=== PATIENT | male | born 1965 | race Hispanic/Latino ===

== ENCOUNTER 2020-06-21 11:47 | Inpatient (IN) | payer OTHER ==
[~2020-06-21] VITALS: Ht 167.6 cm; Wt 83.9 kg
[2020-06-21] MEDS ORDERED: ASPIRIN 81 MG CHEW TAB PO ONE (13:30)
[2020-06-21] MEDS ORDERED: HYDRALAZINE HCL 20 MG/ML VIAL IV PRN (14:00)
[2020-06-21] MEDS ORDERED: LIDOCAINE 4% PATCH TP PRN (14:00)
[2020-06-21] MEDS ORDERED: POTASSIUM CHLORIDE 20 MEQ TAB CR PO PRN (14:00)
[2020-06-21] MEDS ORDERED: HYDROCODONE/APAP 5MG-325MG TAB PO PRN (14:00)
[2020-06-21] MEDS ORDERED: CHLORASEPTIC SPRAY 177 ML BTL MM PRN (14:00)
[2020-06-21] MEDS ORDERED: DIPHENHYDRAMINE HCL 25 MG CAP PO PRN (14:00)
[2020-06-21] MEDS ORDERED: POLYETHYLENE GLYCOL 3350 17 GM PACK PO PRN (14:00)
[2020-06-21] MEDS ORDERED: ONDANSETRON HCL INJ 2MG/ML 2ML 2 MG/ML VIAL IV PRN (14:00)
[2020-06-21] MEDS ORDERED: DEXTROSE 50% SYRINGE 50 ML IV PRN (14:00)
[2020-06-21] MEDS: GUAIFENESIN/CODEINE 10 ML CUP PO PRN ×2 (14:08→17:43)
[2020-06-21] MEDS: BENZONATATE 100 MG CAP PO PRN ×2 (14:08→17:43)
[2020-06-21] MEDS: ACETAMINOPHEN 325 MG TAB PO PRN (14:08)
[2020-06-21] MEDS: DEXAMETHASONE SOD PHOS INJ 4 MG/ML VIAL IV SCH (14:18)
[2020-06-21] MEDS: CEFTRIAXONE SOD 1 GM/NS 50 ML 50 ML IV SCH (14:19)
[2020-06-21 14:24] LABS: CREATINE KINASE 220 IU/L (30-200)
[2020-06-21] MEDS: AZITHROMYCIN 500MG/NS 250 ML 250 ML IV SCH (14:24)
[2020-06-21 14:27] LABS: BASOPHILS % 0.2 % (0.0-1.0); HEMATOCRIT 40.3 % (38.2-49.6); HEMOGLOBIN 14.4 g/dL (14.0-18.0); LYMPHOCYTES # (AUTO) 0.9 (1.0-3.2); LYMPHOCYTES % 8.4 % (18.0-39.1); MEAN CORPUSCULAR HGB CONC 35.7 g/dL (31-35); MEAN CORPUSCULAR VOLUME 92.4 fL (81-99); MONOCYTES # (AUTO) 0.2 (0.2-0.8); MONOCYTES % 1.9 % (4.4-11.3); NEUTROPHILS # (AUTO) 9.5 (2.1-6.9); NEUTROPHILS % 88.5 % (38.7-80.0); PLATELET COUNT 290 x10e3/uL (140-360); RED BLOOD COUNT 4.36 x10e6/uL (4.3-5.7); RED CELL DISTRIBUTION WIDTH 11.9 % (11.7-14.4)
[2020-06-21 14:38] LABS: ALANINE AMINOTRANSFERASE 40 IU/L (0-55); ALBUMIN 2.4 g/dL (3.5-5.0); ALBUMIN/GLOBULIN RATIO 0.5 (0.8-2.0); ALKALINE PHOSPHATASE 48 IU/L (40-150); ANION GAP 15.3 mmol/L (8-16); BLOOD UREA NITROGEN 18 mg/dL (7-26); BUN/CREATININE RATIO 20 (6-25); CALCIUM 8.2 mg/dL (8.4-10.2); CARBON DIOXIDE 26 mmol/L (22-29); CHLORIDE 94 mmol/L (98-107); CREATININE, SERUM 0.91 mg/dL (0.72-1.25); EST GLOMERULAR FILTRATION RATE > 60 ML/MIN (60-); GLUCOSE 178 mg/dL (74-118); POTASSIUM 4.3 mmol/L (3.5-5.1); SODIUM 131 mmol/L (136-145)
[2020-06-21] MEDS ORDERED: REMDESIVIR 200MG/NS 100ML 200 MG in SODIUM CHLORIDE 0.9% 100 ML 100 ML IV ONE (15:00)
[2020-06-21] MEDS: ASCORBIC ACID 500 MG TAB PO SCH (17:43)
[2020-06-21] MEDS: ENOXAPARIN SOD INJ 40 MG/0.4 ML SYR SC SCH (17:43)
[2020-06-21 23:23] LABS: CREATINE KINASE MB 1.3 ng/mL (0-5.0)
[2020-06-22 05:57] LABS: HEMATOCRIT 40.9 % (38.2-49.6); HEMOGLOBIN 14.8 g/dL (14.0-18.0); LYMPHOCYTES # (AUTO) 0.5 (1.0-3.2); LYMPHOCYTES % 7.4 % (18.0-39.1); MEAN CORPUSCULAR HEMOGLOBIN 33.8 pg (28-32); MEAN CORPUSCULAR HGB CONC 36.2 g/dL (31-35); MEAN CORPUSCULAR VOLUME 93.4 fL (81-99); MONOCYTES # (AUTO) 0.1 (0.2-0.8); NEUTROPHILS # (AUTO) 6.4 (2.1-6.9); NEUTROPHILS % 90.2 % (38.7-80.0); PLATELET COUNT 292 x10e3/uL (140-360); RED BLOOD COUNT 4.38 x10e6/uL (4.3-5.7); RED CELL DISTRIBUTION WIDTH 11.9 % (11.7-14.4)
[2020-06-22 06:12] LABS: CREATINE KINASE MB 1.2 ng/mL (0-5.0)
[2020-06-22 06:31] LABS: ALANINE AMINOTRANSFERASE 37 IU/L (0-55); ALBUMIN 2.1 g/dL (3.5-5.0); ALBUMIN/GLOBULIN RATIO 0.4 (0.8-2.0); ALKALINE PHOSPHATASE 48 IU/L (40-150); ANION GAP 16.3 mmol/L (8-16); BLOOD UREA NITROGEN 24 mg/dL (7-26); BUN/CREATININE RATIO 32 (6-25); CALCIUM 8.4 mg/dL (8.4-10.2); CARBON DIOXIDE 22 mmol/L (22-29); CHLORIDE 97 mmol/L (98-107); CREATININE, SERUM 0.76 mg/dL (0.72-1.25); EST GLOMERULAR FILTRATION RATE > 60 ML/MIN (60-); GLUCOSE 225 mg/dL (74-118); POTASSIUM 4.3 mmol/L (3.5-5.1); SODIUM 131 mmol/L (136-145)
[2020-06-22 06:45] LABS: MAGNESIUM 2.3 MG/DL (1.3-2.1); PHOSPHORUS 2.9 MG/DL (2.3-4.7)
[2020-06-22 07:42] LABS: FERRITIN 3269.01 ng/mL (21.81-274.66)
[2020-06-22] MEDS: ZINC SULFATE 220 MG CAP PO SCH (08:13)
[2020-06-22] MEDS: PANTOPRAZOLE SOD 40 MG TABEC PO SCH (08:13)
[2020-06-22] MEDS: DOCUSATE SODIUM 100 MG CAP PO PRN (08:13)
[2020-06-22] MEDS: DEXAMETHASONE SOD PHOS INJ 4 MG/ML VIAL IV SCH (08:13)
[2020-06-22] MEDS: ASCORBIC ACID 500 MG TAB PO SCH ×2 (08:13→18:18)
[2020-06-22] MEDS: BENZONATATE 100 MG CAP PO PRN (08:14)
[2020-06-22] MEDS: GUAIFENESIN/CODEINE 10 ML CUP PO PRN ×2 (08:14→18:18)
[2020-06-22] MEDS: REMDESIVIR 100MG/NS 100ML 100 MG in SODIUM CHLORIDE 0.9% 100 ML 100 ML IV SCH (14:17)
[2020-06-22] MEDS: CEFTRIAXONE SOD 1 GM/NS 50 ML 50 ML IV SCH (15:04)
[2020-06-22] MEDS: AZITHROMYCIN 500MG/NS 250 ML 250 ML IV SCH (16:37)
[2020-06-22 17:57] VITALS: BP 114/76
[2020-06-22] MEDS: ENOXAPARIN SOD INJ 40 MG/0.4 ML SYR SC SCH (18:18)
[2020-06-22 18:19] VITALS: BP 114/76
[2020-06-22 20:00] VITALS: BP 101/79
[2020-06-22] MEDS: ACETAMINOPHEN 325 MG TAB PO PRN (21:00)
[2020-06-22 21:15] VITALS: BP 101/79
[2020-06-23] VITALS (8 sets, daily range): BP systolic 98–112; BP diastolic 62–73
[2020-06-23] MEDS: ASCORBIC ACID 500 MG TAB PO SCH ×2 (08:32→17:12)
[2020-06-23] MEDS: DEXAMETHASONE SOD PHOS INJ 4 MG/ML VIAL IV SCH (08:32)
[2020-06-23] MEDS: PANTOPRAZOLE SOD 40 MG TABEC PO SCH (08:32)
[2020-06-23] MEDS: ZINC SULFATE 220 MG CAP PO SCH (08:32)
[2020-06-23] MEDS: REMDESIVIR 100MG/NS 100ML 100 MG in SODIUM CHLORIDE 0.9% 100 ML 100 ML IV SCH (14:45)
[2020-06-23] MEDS: AZITHROMYCIN 500MG/NS 250 ML 250 ML IV SCH (14:49)
[2020-06-23] MEDS: CEFTRIAXONE SOD 1 GM/NS 50 ML 50 ML IV SCH (14:49)
[2020-06-23] MEDS ORDERED: SODIUM CHLORIDE 0.9% 250ML 250 ML ONE (15:07)
[2020-06-23] MEDS: ENOXAPARIN SOD INJ 40 MG/0.4 ML SYR SC SCH (17:12)
[2020-06-23] MEDS: BENZONATATE 100 MG CAP PO PRN (20:28)
[2020-06-23] MEDS: MELATONIN 5 MG TABLET PO PRN (20:28)
[2020-06-24] VITALS: BP 111/66
[2020-06-24 08:00] VITALS: BP 110/70
[2020-06-24] MEDS: DEXAMETHASONE SOD PHOS INJ 4 MG/ML VIAL IV SCH (08:50)
[2020-06-24] MEDS: ZINC SULFATE 220 MG CAP PO SCH (08:50)
[2020-06-24] MEDS: PANTOPRAZOLE SOD 40 MG TABEC PO SCH (08:50)
[2020-06-24] MEDS: ASCORBIC ACID 500 MG TAB PO SCH ×2 (08:50→17:58)
[2020-06-24 08:55] VITALS: BP 111/66
[2020-06-24] MEDS: AZITHROMYCIN 500MG/NS 250 ML 250 ML IV SCH (15:47)
[2020-06-24] MEDS: CEFTRIAXONE SOD 1 GM/NS 50 ML 50 ML IV SCH (15:47)
[2020-06-24] MEDS: REMDESIVIR 100MG/NS 100ML 100 MG in SODIUM CHLORIDE 0.9% 100 ML 100 ML IV SCH (15:47)
[2020-06-24 17:51] VITALS: BP 127/79
[2020-06-24] MEDS: ENOXAPARIN SOD INJ 40 MG/0.4 ML SYR SC SCH (17:58)
[2020-06-24] MEDS: BENZONATATE 100 MG CAP PO PRN (20:06)
[2020-06-24] MEDS: MELATONIN 5 MG TABLET PO PRN (20:06)
[2020-06-24 21:00] VITALS: BP 125/69
[2020-06-25] VITALS: BP 110/54
[2020-06-25 04:00] VITALS: BP 113/70
[2020-06-25 08:00] VITALS: BP_SYST 113; BP_SYST 128; BP_DIAS 70; BP_DIAS 71
[2020-06-25] MEDS: PANTOPRAZOLE SOD 40 MG TABEC PO SCH (09:45)
[2020-06-25] MEDS: DEXAMETHASONE SOD PHOS INJ 4 MG/ML VIAL IV SCH (09:45)
[2020-06-25] MEDS: ZINC SULFATE 220 MG CAP PO SCH (09:46)
[2020-06-25] MEDS: ASCORBIC ACID 500 MG TAB PO SCH ×2 (09:46→17:32)
[2020-06-25 12:00] VITALS: BP 125/72
[2020-06-25] MEDS ORDERED: DEXTROSE 50% SYRINGE 50 ML IV PRN (12:30)
[2020-06-25] MEDS: AZITHROMYCIN 500MG/NS 250 ML 250 ML IV SCH (15:03)
[2020-06-25] MEDS: CEFTRIAXONE SOD 1 GM/NS 50 ML 50 ML IV SCH (15:03)
[2020-06-25] MEDS: REMDESIVIR 100MG/NS 100ML 100 MG in SODIUM CHLORIDE 0.9% 100 ML 100 ML IV SCH (15:03)
[2020-06-25 16:00] VITALS: BP 128/79
[2020-06-25] MEDS: ENOXAPARIN SOD INJ 40 MG/0.4 ML SYR SC SCH (17:32)
[2020-06-25] MEDS: INSULIN REGULAR, HUMAN 100 UNIT/1 ML 3ML VIAL SQ SCH ×2 (17:34→21:00)
[2020-06-25] MEDS: MELATONIN 5 MG TABLET PO PRN (20:24)
[2020-06-25] MEDS: BENZONATATE 100 MG CAP PO PRN (20:24)
[2020-06-25 21:00] VITALS: BP_SYST 122; BP_SYST 128; BP_DIAS 79; BP_DIAS 80
[2020-06-26] VITALS (8 sets, daily range): BP systolic 98–118; BP diastolic 50–80
[2020-06-26 05:13] LABS: BASOPHILS % 0.2 % (0.0-1.0); EOSINOPHILS % 0.3 % (0.0-6.0); HEMOGLOBIN 13.7 g/dL (14.0-18.0); LYMPHOCYTES # (AUTO) 0.7 (1.0-3.2); LYMPHOCYTES % 11.7 % (18.0-39.1); MEAN CORPUSCULAR HEMOGLOBIN 32.8 pg (28-32); MEAN CORPUSCULAR HGB CONC 35.1 g/dL (31-35); MEAN CORPUSCULAR VOLUME 93.3 fL (81-99); MONOCYTES # (AUTO) 0.2 (0.2-0.8); MONOCYTES % 3.3 % (4.4-11.3); NEUTROPHILS % 83.7 % (38.7-80.0); PLATELET COUNT 333 x10e3/uL (140-360); RED BLOOD COUNT 4.18 x10e6/uL (4.3-5.7); RED CELL DISTRIBUTION WIDTH 11.9 % (11.7-14.4)
[2020-06-26 05:40] LABS: ANION GAP 13.1 mmol/L (8-16); BLOOD UREA NITROGEN 24 mg/dL (7-26); BUN/CREATININE RATIO 38 (6-25); CALCIUM 7.9 mg/dL (8.4-10.2); CARBON DIOXIDE 22 mmol/L (22-29); CHLORIDE 103 mmol/L (98-107); CREATININE, SERUM 0.64 mg/dL (0.72-1.25); EST GLOMERULAR FILTRATION RATE > 60 ML/MIN (60-); GLUCOSE 126 mg/dL (74-118); POTASSIUM 4.1 mmol/L (3.5-5.1); SODIUM 134 mmol/L (136-145)
[2020-06-26] MEDS: PANTOPRAZOLE SOD 40 MG TABEC PO SCH (08:38)
[2020-06-26] MEDS: DEXAMETHASONE SOD PHOS INJ 4 MG/ML VIAL IV SCH (08:39)
[2020-06-26] MEDS: ASCORBIC ACID 500 MG TAB PO SCH ×2 (08:39→17:07)
[2020-06-26] MEDS: ZINC SULFATE 220 MG CAP PO SCH (08:39)
[2020-06-26] MEDS: INSULIN REGULAR, HUMAN 100 UNIT/1 ML 3ML VIAL SQ SCH ×4 (12:05→21:23)
[2020-06-26] MEDS: CEFTRIAXONE SOD 1 GM/NS 50 ML 50 ML IV SCH (14:48)
[2020-06-26] MEDS: ENOXAPARIN SOD INJ 40 MG/0.4 ML SYR SC SCH (17:07)
[2020-06-26] MEDS: MELATONIN 5 MG TABLET PO PRN (21:28)
[2020-06-26] MEDS: BENZONATATE 100 MG CAP PO PRN (21:28)
[2020-06-27] VITALS (9 sets, daily range): BP systolic 94–123; BP diastolic 57–72
[2020-06-27] MEDS: INSULIN REGULAR, HUMAN 100 UNIT/1 ML 3ML VIAL SQ SCH ×4 (07:30→21:00)
[2020-06-27] MEDS: DEXAMETHASONE SOD PHOS INJ 4 MG/ML VIAL IV SCH (08:44)
[2020-06-27] MEDS: ASCORBIC ACID 500 MG TAB PO SCH ×2 (08:45→16:52)
[2020-06-27] MEDS: ZINC SULFATE 220 MG CAP PO SCH (08:45)
[2020-06-27] MEDS: PANTOPRAZOLE SOD 40 MG TABEC PO SCH (08:45)
[2020-06-27] MEDS: ENOXAPARIN SOD INJ 40 MG/0.4 ML SYR SC SCH (16:53)
[2020-06-28] VITALS (8 sets, daily range): BP systolic 90–106; BP diastolic 56–72
[2020-06-28 05:33] LABS: EOSINOPHILS % 0.4 % (0.0-6.0); HEMATOCRIT 39.6 % (38.2-49.6); HEMOGLOBIN 14.1 g/dL (14.0-18.0); LYMPHOCYTES % 19.7 % (18.0-39.1); MEAN CORPUSCULAR HEMOGLOBIN 32.9 pg (28-32); MEAN CORPUSCULAR HGB CONC 35.6 g/dL (31-35); MEAN CORPUSCULAR VOLUME 92.3 fL (81-99); MONOCYTES # (AUTO) 0.4 (0.2-0.8); MONOCYTES % 6.8 % (4.4-11.3); NEUTROPHILS # (AUTO) 3.7 (2.1-6.9); NEUTROPHILS % 71.7 % (38.7-80.0); PLATELET COUNT 392 x10e3/uL (140-360); RED BLOOD COUNT 4.29 x10e6/uL (4.3-5.7); RED CELL DISTRIBUTION WIDTH 11.9 % (11.7-14.4)
[2020-06-28 06:04] LABS: BLOOD UREA NITROGEN 25 mg/dL (7-26); BUN/CREATININE RATIO 38 (6-25); CALCIUM 7.9 mg/dL (8.4-10.2); CARBON DIOXIDE 23 mmol/L (22-29); CHLORIDE 104 mmol/L (98-107); CREATININE, SERUM 0.65 mg/dL (0.72-1.25); EST GLOMERULAR FILTRATION RATE > 60 ML/MIN (60-); GLUCOSE 78 mg/dL (74-118); SODIUM 134 mmol/L (136-145)
[2020-06-28] MEDS: INSULIN REGULAR, HUMAN 100 UNIT/1 ML 3ML VIAL SQ SCH ×4 (07:30→21:36)
[2020-06-28] MEDS: ASCORBIC ACID 500 MG TAB PO SCH ×2 (09:35→16:46)
[2020-06-28] MEDS: ZINC SULFATE 220 MG CAP PO SCH (09:35)
[2020-06-28] MEDS: PANTOPRAZOLE SOD 40 MG TABEC PO SCH (09:35)
[2020-06-28] MEDS: DEXAMETHASONE SOD PHOS INJ 4 MG/ML VIAL IV SCH (09:35)
[2020-06-29] VITALS (9 sets, daily range): BP systolic 88–106; BP diastolic 61–76
[2020-06-29] MEDS: INSULIN REGULAR, HUMAN 100 UNIT/1 ML 3ML VIAL SQ SCH ×4 (07:30→20:24)
[2020-06-29] MEDS: PANTOPRAZOLE SOD 40 MG TABEC PO SCH (08:05)
[2020-06-29] MEDS: DEXAMETHASONE SOD PHOS INJ 4 MG/ML VIAL IV SCH (08:05)
[2020-06-29] MEDS: ZINC SULFATE 220 MG CAP PO SCH (08:05)
[2020-06-29] MEDS: ASCORBIC ACID 500 MG TAB PO SCH ×2 (08:05→16:01)
[2020-06-30] VITALS (8 sets, daily range): BP systolic 92–109; BP diastolic 67–92
[2020-06-30] MEDS: INSULIN REGULAR, HUMAN 100 UNIT/1 ML 3ML VIAL SQ SCH ×4 (07:30→20:55)
[2020-06-30] MEDS: ASCORBIC ACID 500 MG TAB PO SCH ×2 (09:26→17:35)
[2020-06-30] MEDS: DEXAMETHASONE SOD PHOS INJ 4 MG/ML VIAL IV SCH (09:26)
[2020-06-30] MEDS: PANTOPRAZOLE SOD 40 MG TABEC PO SCH (09:26)
[2020-06-30] MEDS: ZINC SULFATE 220 MG CAP PO SCH (09:26)
[2020-07-01] MEDS: DOCUSATE SODIUM 100 MG CAP PO PRN (01:06)
[2020-07-01 01:14] VITALS: BP 115/86
[2020-07-01 05:43] VITALS: BP 95/69
[2020-07-01 07:07] LABS: BLOOD UREA NITROGEN 24 mg/dL (7-26); BUN/CREATININE RATIO 37 (6-25); CALCIUM 8.1 mg/dL (8.4-10.2); CARBON DIOXIDE 25 mmol/L (22-29); CHLORIDE 103 mmol/L (98-107); CREATININE, SERUM 0.65 mg/dL (0.72-1.25); EST GLOMERULAR FILTRATION RATE > 60 ML/MIN (60-); GLUCOSE 80 mg/dL (74-118); SODIUM 136 mmol/L (136-145)
[2020-07-01] MEDS: INSULIN REGULAR, HUMAN 100 UNIT/1 ML 3ML VIAL SQ SCH ×2 (07:30→11:30)
[2020-07-01 08:00] VITALS: BP 102/66
[2020-07-01 08:58] VITALS: BP_SYST 122; BP_SYST 95; BP_DIAS 66; BP_DIAS 69
[2020-07-01] MEDS: PANTOPRAZOLE SOD 40 MG TABEC PO SCH (09:42)
[2020-07-01] MEDS: ZINC SULFATE 220 MG CAP PO SCH (09:42)
[2020-07-01] MEDS: ASCORBIC ACID 500 MG TAB PO SCH (09:42)
[2020-07-01 12:00] VITALS: BP_SYST 108
[2020-07-01] MEDS ORDERED: TESSALON PERLE100 MG PO (13:08)
[2020-07-01] MEDS ORDERED: ELIQUIS2.5 MG PO (13:08)
[2020-07-01] MEDS ORDERED: ASCORBIC ACID500 M2 PO (13:10)
[2020-07-01] MEDS ORDERED: ZINC SULFATE220 M1 PO (13:11)
[2020-07-01] MEDS ORDERED: ONDANSETRON HCL 4 MG ORAL DISINTEGRATING TAB PO PRN (13:15)
== END 2020-07-01 13:56 | disposition home or self-care (01) | DRG 177 ==
LOC: ER 12:39 → ERHOLD 13:22 → IMCU 06-22 17:48
PROVIDERS: ADMIT Internal Medicine; ATTEND Internal Medicine
PROC: 8E0ZXY6 Isolation (ICD-10-PCS; principal; 2020-06-21)
PROC: XW033E5 Introduction of Remdesivir Anti-infective into Peripheral Vein, Percutaneous Approach, New Technology Group 5 (ICD-10-PCS; 2020-06-21)
DX: U07.1 COVID-19 (principal); J12.82 Pneumonia due to coronavirus disease 2019; J96.00 Acute respiratory failure, unspecified whether with hypoxia or hypercapnia; E87.1 Hypo-osmolality and hyponatremia
CPT/HCPCS: 36415; 71045; 80048; 80053; 82550; 82553; 82728; 82948; 83036; 83735; 84100; 84484; 85025; 99285; J0360; J0456; J0696; J1100; J1650; J1817; J7050; U0002